=== PATIENT | female | born 1935 | race Hispanic/Latino ===

== ENCOUNTER 2020-01-31 05:24 | Emergency (ER) | payer MEDICARE ==
[2020-01-31] MEDS ORDERED: Lidocaine 2% w/Epinephrine 1:200K 20 ML VIAL ONE (05:37)
--- NOTE | 2020-01-31 07:29 | CT ---
PRELIMINARY REPORT/[facility]/EMERGENCY AFTER HOURS PROCEDURE: EXAM: CT Head Without Intravenous Contrast. CLINICAL HISTORY: ER PATIENT THAT SAID SHE FELL OUT OF BED THIS MORNING AND ROLLED OVER AND HIT HER HEAD ON HER NIGHTST AND. LACERATION TO RT FOREHEAD. NO LOC; NO BLOOD THINNERS TECHNIQUE: Axial computed tomography images of the head/brain without intravenous contrast. COMPARISON: None provided. FINDINGS: BRAIN: No acute intraparenchymal hemorrhage. No mass lesion. No CT evidence for acute territorial infarct. N o midline shift or extra-axial collection. VENTRICLES: No hydrocephalus. ORBITS: The globes are intact. SINUSES AND MASTOIDS: The paranasal sinuses and mastoid air cells are clear. SOFT TISSUES: Laceration overlying the frontal bones. BONES: No acute skull fracture. IMPRESSION: No acute intracranial abnormality. Laceration overlying the frontal bones. ELECTRONICALLY SIGNED BY: Stephanie Suggs MD Jan 31, 2020 6:36:53 AM CDT This report is intended for review by the ordering physician only, in accordance of law. If you recei ve this report in error, please call [facility] at [phone]. FINAL REPORT EMERGENCY AFTER HOURS CT BRAIN: COMPARISON: None. HISTORY: Head trauma after falling out of bed this morning and hitting nightstand. TECHNIQUE: Multiple contiguous axial images were obtained in a CT of the brain without contrast. Sagittal and co catarina reformats were performed. FINDINGS: There are a few scattered hypodensities in the subcortical and periventricular white matter, likely s econdary to small vessel ischemic disease. No large confluent infarction is seen. There is no evidenc e of hydrocephalus, intracranial hemorrhage, or extra-axial fluid collections. The calvarium is unremarkable. There is a laceration to the forehead. The visualized paranasal sinuse s and mastoid air cells are well aerated. IMPRESSION: No evidence of acute intracranial abnormality. I agree with the findings and impression given in the preliminary report per [facility] physici an. POS: JULIET
== END 2020-01-31 07:05 | disposition home or self-care (01) ==
LOC: MADERS 05:24
DX: S01.81XA Laceration without foreign body of other part of head, initial encounter (principal); M19.90 Unspecified osteoarthritis, unspecified site; E11.9 Type 2 diabetes mellitus without complications; K21.9 Gastro-esophageal reflux disease without esophagitis; I10 Essential (primary) hypertension; Z79.84 Long term (current) use of oral hypoglycemic drugs; Z79.899 Other long term (current) drug therapy; W06.XXXA Fall from bed, initial encounter
CPT/HCPCS: 12053; 70450